=== PATIENT | female | born 1975 | race Caucasian/White ===

== ENCOUNTER 2016-04-27 09:40 | Emergency (ER) | payer MEDICAID ==
[2016-04-27 09:52] VITALS: BP 127/73
[2016-04-27] MEDS ORDERED: DEXAMETHASONE 10 MG/ML VIAL PO STA (09:55)
[2016-04-27] MEDS ORDERED: CHERRY SYRUP 10 ML UDC PO ONE (10:06)
[2016-04-27] MEDS ORDERED: DEXAMETHASONE 10 MG/ML VIAL ONE (10:06)
[2016-04-27 10:12] LABS: RAPID STREP SCREEN REAGENT QC YELLOW (YELLOW)
--- NOTE | 2016-04-27 10:24 | ED Physician Documentation ---
PD HPI HEENT - Stated complaint Stated Complaint: SORE THROAT - Chief complaint Chief Complaint: Heent - History obtained from History obtained from: Patient - History of Present Illness Timing - onset: How many days ago (3) Timing - duration: Days Timing - details: Gradual onset (3), Still present Location: Throat Improves: Medication Worsens: [place] Associated symptoms: Fever, Congestion, Headache, Cough Similar symptoms before: Diagnosis (The patient has had strep.) Recently seen: Not recently seen - Additional information Additional information: 40 y/o female with a sore throat has had fever and mild cough. Review of Systems Constitutional: reports: Fever Eyes: denies: Decreased vision Ears: denies: Ear pain Nose: reports: Rhinorrhea / runny nose, Congestion Throat: reports: Sore throat Cardiac: denies: Chest pain / pressure, Palpitations Respiratory: reports: Cough. denies: Dyspnea GI: denies: Abdominal Pain, Nausea, Vomiting : denies: Dysuria, Frequency Neurologic: reports: Headache. denies: Head injury, LOC PD PAST MEDICAL HISTORY - Present Medications Home Medications: Ambulatory Orders Medication Instructions Recorded Confirmed Azithromycin [Zithromax] 250 mg PO DAILY #6 tablet 04/27/16 - Allergies Allergies/Adverse Reactions: Allergies Allergy/AdvReac Type Severity Reaction Status Date / Time No Known Drug Allergies Allergy Verified 08/24/14 15:55 - Social History Smoking Status: Never smoker PD ED PE NORMAL - Vitals Vital signs reviewed: Yes (tachy ) - General General: Alert and oriented X 3, No acute distress, Well developed/nourished - HEENT HEENT: Atraumatic, PERRL, EOMI, Other (The left TM is flush the right is clear the pharynx is with exudate on cryptic tonsils with foul odor. ) - Neck Neck: Supple, no meningeal sign, No bony TTP - Cardiac Cardiac: RRR, No murmur - Respiratory Respiratory: No respiratory distress, Clear bilaterally - Abdomen Abdomen: Soft, Non tender - Back Back: No CVA TTP, No spinal TTP - Derm Derm: Normal color, Warm and dry, No rash - Extremities Extremities: No deformity, No edema - Neuro Neuro: No motor deficit, No sensory deficit - Psych Psych: Normal mood, Normal affect Results - Vitals Vitals: Vital Signs - 24 hr 04/27/16 09:50 Temperature 36.8 C Heart Rate 102 H Respiratory 16 Rate Blood Pressure 127/73 O2 Saturation 100 Oxygen O2 Source Room air - Labs Labs: Laboratory Tests 04/27/16 09:55 Group A Strep Rapid Negative PD MEDICAL DECISION MAKING - ED course Complexity details: reviewed old records, reviewed results, re-evaluated patient , considered differential, d/w patient ED course: 40 y/o female with a sore throat and fever has cryptic tonsils and negative rapid strep. She is given decadron in the ED and we will put her on a course of zithromax. Departure - Departure Disposition: 01 Home, Self Care Clinical Impression: Tonsillitis Condition: Stable Instructions: ED Peritonsillar Infec Abx No I andD Follow-Up: [facility] [Provider Group] Prescriptions: Azithromycin [Zithromax] 250 mg PO DAILY #6 tablet
== END 2016-04-27 10:44 | disposition home or self-care (01) ==
LOC: ED 09:40
DX: J03.90 Acute tonsillitis, unspecified (principal)
CPT/HCPCS: 87070; 87430; 99283; A9270